=== PATIENT | male | born 1965 | race American Indian/Alaskan Native ===

== ENCOUNTER 2022-01-02 08:10 | Emergency (ER) | payer BC ==
--- NOTE | 2022-01-02 08:54 | XRay Report ---
CHEST 2 VIEWS INDICATION / CLINICAL INFORMATION: Chest Pain. COMPARISON: None available. FINDINGS: SUPPORT DEVICES: None. HEART / MEDIASTINUM: No significant abnormality. LUNGS / PLEURA: No significant pulmonary or pleural abnormality. No pneumothorax. ADDITIONAL FINDINGS: No significant additional findings. IMPRESSION: 1. No acute findings. Signer Name: Kranthi Wilson Jr, MD Signed: 01/02/2022 8:49 AM Workstation Name: [id number]
[2022-01-02] MEDS ORDERED: BENZONATATE 100 MG CAP PO ONE (09:56)
[2022-01-02] MEDS ORDERED: guaiFENesin ER 600 MG TAB PO ONE (09:56)
[2022-01-02] MEDS ORDERED: SODIUM CHLORIDE 0.9% 1000 ML 1,000 ML IV ONE (09:57)
--- NOTE | 2022-01-02 10:00 | Emergency Department Report ---
ED General Adult HPI - General Chief complaint: Chest Pain Stated complaint: CHEST PAIN, THROAT PAIN PUI?: No Time Seen by Provider: 01/02/22 09:48 Source: patient Mode of arrival: Ambulatory Limitations: No Limitations - History of Present Illness Initial comments: This is a 56-year-old male with medical history of hypertension hyperlipidemia and also prediabetes who denies smoking history also denies family myocardial infarction less than 65 years old and also denies using cocaine. Patient came to the ER today with concerns of chest discomfort for the past 2 weeks. Which according to patient is aching-like sensation and sometimes feels like sharp. Patient denies radiate anywhere else is more of a localized midsternal area. According to patient he has been coughing for the past 5 weeks and he knows that he has a lot of phlegm and also something throat tightness as well as back pain. At the time my evaluation patient denies any fever chill night sweat dizziness blurred vision lightheadedness headache tinnitus ear pain runny nose sore throat loss of taste loss of smell palpitation short of breath abdominal pain nausea vomiting diarrhea constipation joint pain muscle pain new rash heat or cold intolerance. - Related Data Previous Rx's Medication Instructions Recorded Last Taken Type Benzonatate [Tessalon Perles] 100 mg PO Q8HR #12 cap 01/02/22 Unknown Rx Allergies Allergy/AdvReac Type Severity Reaction Status Date / Time No Known Allergies Allergy Verified 01/02/22 08:18 ED Review of Systems ROS: Stated complaint: CHEST PAIN, THROAT PAIN Other details as noted in HPI Comment: Unobtainable due to pts medical conditions Constitutional: no symptoms reported, see HPI Eyes: as per HPI ENT: as per HPI Respiratory: no symptoms reported, cough Cardiovascular: chest pain Endocrine: no symptoms reported, see HPI Gastrointestinal: as per HPI Musculoskeletal: as per HPI Skin: as per HPI Neurological: as per HPI ED Past Medical Hx - Past Medical History Previous Medical History?: Yes Hx Hypertension: Yes Additional medical history: hyperlipidemia - Medications Home Medications: Home Medications Medication Instructions Recorded Confirmed Last Taken Type Benzonatate [Tessalon Perles] 100 mg PO Q8HR #12 cap 01/02/22 Unknown Rx ED Physical Exam - General Limitations: No Limitations General appearance: alert, in no apparent distress - Head Head exam: Present: atraumatic, normocephalic, normal inspection - Eye Eye exam: Present: normal appearance, PERRL, EOMI Pupils: Present: normal accommodation - ENT ENT exam: Present: normal exam, mucous membranes moist - Neck Neck exam: Present: normal inspection, full ROM - Respiratory Respiratory exam: Present: normal lung sounds bilaterally. Absent: respiratory distress, wheezes, rales, rhonchi, stridor - Cardiovascular Cardiovascular Exam: Present: tachycardia, normal heart sounds - GI/Abdominal GI/Abdominal exam: Present: soft - Extremities Exam Extremities exam: Present: normal inspection, full ROM, normal capillary refill - Back Exam Back exam: Present: normal inspection, full ROM - Neurological Exam Neurological exam: Present: alert, oriented X3, CN II-XII intact - Psychiatric Psychiatric exam: Present: normal affect, normal mood - Skin Skin exam: Present: warm, normal color ED Course Vital Signs 01/02/22 01/02/22 01/02/22 08:16 08:17 09:24 Temperature 98.5 F Pulse Rate 122 H 111 H Respiratory Rate Blood Pressure 187/97 O2 Sat by Pulse 99 Oximetry 01/02/22 01/02/22 10:00 10:53 Temperature Pulse Rate 113 H Respiratory 23 18 Rate Blood Pressure 132/83 O2 Sat by Pulse 96 Oximetry ED Medical Decision Making - Lab Data Result diagrams: 01/02/22 10:44 01/02/22 10:44 Critical care attestation.: If time is entered above; I have spent that time in minutes in the direct care of this critically ill patient, excluding procedure time. ED Disposition Clinical Impression: Non-cardiac chest pain, Chronic bronchitis Disposition: HOME / SELF CARE / HOMELESS Is pt being admited?: No Does the pt Need Aspirin: No Condition: Stable Instructions: Nonspecific Chest Pain, Adult, Chronic Bronchitis (ED) Additional Instructions: YOUR WORK UP IN THE EMERGENCY ROOM WAS UNREMARKABLE. MAKE A FOLLOW UP APPOINTMENT WITH YOUR PRIMARY CARE PROVIDER TO BE SEEN WITHIN 3 DAYS FOR FURTHER EVALUATION. Prescriptions: Benzonatate [Tessalon Perles] 100 mg PO Q8HR #12 cap Referrals: PRIMARY CARE, [Primary Care Provider] - 3-5 Days Time of Disposition: 12:05
[2022-01-02 11:01] LABS: Hematocrit 40.5 % (35.5-45.6); Hemoglobin 13.6 gm/dl (11.8-15.2); Mean Corpuscular HGB Conc 34 % (32-34); Mean Corpuscular Volume 88 fl (84-94); Platelet Count 284 K/mm3 (140-440); Red Cell Distribution Width 13.8 % (13.2-15.2)
[2022-01-02 11:20] LABS: Creatine Kinase MB 1.5 ng/mL (0.0-4.0)
[2022-01-02 11:21] LABS: Alanine Aminotransferase 78 units/L (7-56); Albumin 4.7 g/dL (3.9-5); Blood Urea Nitrogen 20 mg/dL (9-20); Calcium 10.3 mg/dL (8.4-10.2); Hemolysis Index 8
[2022-01-02 11:24] LABS: BUN/Creatinine Ratio 29
[2022-01-02 13:40] VITALS: BP 119/82
--- NOTE | 2022-01-04 17:16 | Electrocardiograph Report ---
[facility] Test Date: 2022-01-02 Test Time: 08:25:13 Pat Name: SINGH CAPONE Department: Room: Gender: M Director Business: [id number] : [id number] Requested By: VERO PONCE Order Number: [id number] Reading MD: Slava Castano Measurements Intervals [place] Rate: 109 P: 64 ME: 146 QRS: 48 QRSD: 86 T: 19 QT: 324 QTc: 436 Interpretive Statements Sinus tachycardia No previous ECG available for comparison Electronically Signed On 01-04-2022 17:16:06 EDT by Slava Castano
== END 2022-01-02 14:30 | disposition home or self-care (01) ==
LOC: ED 08:10
DX: J42 Unspecified chronic bronchitis (principal); R07.89 Other chest pain; Z79.899 Other long term (current) drug therapy; I10 Essential (primary) hypertension
CPT/HCPCS: 36415; 71046; 80053; 82550; 82553; 84484; 85027; 93005; 96360; 99284; J7030